=== PATIENT | male | born 1985 | race African-American/Black ===

== ENCOUNTER 2021-04-30 06:23 | Emergency (ER) | payer BC, OTHER ==
[~2021-04-30] VITALS: Ht 188 cm; Wt 78.0 kg
[2021-04-30] MEDS ORDERED: KETOROLAC 30MG/ML VIAL IV STA (07:02)
[2021-04-30] MEDS ORDERED: SODIUM CHLORIDE 0.9% 1,000 ML IV ONE (07:15)
[2021-04-30 08:06] LABS: CLARITY URINE TURBID (CLEAR); COLOR URINE BLOODY (YELLOW); KETONES URINE 2+ (NEGATIVE); LEUKOCYTE ESTERASE URINE 3+ (NEGATIVE); NITRITE URINE POSITIVE (NEGATIVE); OCCULT BLOOD URINE 3+ (NEGATIVE); PROTEIN URINE 1+ (NEGATIVE); SPECIFIC GRAVITY URINE 1.027 (1.005-1.030)
[2021-04-30 08:19] LABS: BASOPHILS % 0.5 % (0.0-2.0); EOSINOPHILS % 0.1 % (0.0-5.0); HEMATOCRIT. 44.5 % (42.0-52.0); HEMOGLOBIN. 15.2 g/dL (14.0-18.0); LYMPHOCYTES % 9.5 % (20.0-50.0); MEAN PLATELET VOLUME 7.4 fl (7.4-10.4); MONOCYTES % 14.3 % (2.0-8.0); NEUTROPHILS % 75.6 % (40.0-76.0); PLATELET 283 x1000/uL (130-400); RED BLOOD CELL COUNT 4.89 mill/uL (4.7-6.1); RED CELL DISTRIBUTION WIDTH 13.6 % (11.6-14.6)
[2021-04-30 08:29] LABS: CHLORIDE 100 mEq/L (98-107)
[2021-04-30] MEDS ORDERED: LEVOFLOXACIN 500MG TABLET PO ONE (08:30)
[2021-04-30] MEDS ORDERED: IOHEXOL-350 100 ML BOTTLE ONE (10:38)
[2021-04-30] MEDS ORDERED: HYDR-4001 MT (12:07)
[2021-04-30] MEDS ORDERED: LEVO500T89 MT (12:07)
[2021-04-30 12:30] VITALS: BP 138/85
== END 2021-04-30 13:39 | disposition home or self-care (01) ==
LOC: ER 06:23
DX: N28.89 Other specified disorders of kidney and ureter (principal); N39.0 Urinary tract infection, site not specified; Z88.0 Allergy status to penicillin
CPT/HCPCS: 36415; 74176; 74177; 80053; 81003; 83690; 85025; 87086; 93005; 96361; 96374; 99291; J1885; J7030; Q9967